=== PATIENT | female | born 1955 | race Caucasian/White ===

== ENCOUNTER 2018-04-22 14:57 | Emergency (ER) | payer OTHER ==
--- NOTE | 2018-04-22 15:05 | ER Report ---
History and Physical Time Seen By MD: 15:06 HPI/ROS CHIEF COMPLAINT: Allergic reaction HISTORY OF PRESENT ILLNESS: 62-year-old female patient presents to emergency room with complaint of allergic reaction. Patient states that she is traveling from [facility] back to home in [place]. Patient states that they had had a corn dog coming back from [facility]. She states they stopped at [employer], had lunch and as they're leaving she knows that her palms were itchy. She didn't think too much about that, they got in the car and drove. Approximately 30-[address] she did feel that she is starting to develop an allergic reaction. She developed a lump in her mouth, which is very normal for when she has an allergic reaction. She states that she took some Benadryl as well as some allergy medicine. She states that she did feel better, however about 10 minutes later she did go ahead and give herself the EpiPen. Patient states that currently she does feel better, however she does have itching still to the palms or hand. She states that she is not able to keep from scratching. She denies any shortness of breath, nausea, vomiting. Patient states they've not been able to figure out what is causing her allergic reactions. REVIEW OF SYSTEMS: Respiratory: No cough, no dyspnea. Cardiovascular: No chest pain, no palpitations. Gastrointestinal: No vomiting, no abdominal pain. Musculoskeletal: No back pain. Allergies: Coded Allergies: Sulfa (Sulfonamide Antibiotics) (Verified Allergy, Unknown, 04/22/18) Home Meds Active Scripts Epinephrine (EPIPEN 2-VICK) 0.3 Mg/0.3 Ml Pen.injctr, 0.3 MG IM ONCE PRN for allergic reaction, #2 PACK Prov:SIMIN AVALOSE [facility] 04/22/18 Prednisone (PREDNISONE) 20 Mg Tablet, 20 MG PO BID, #10 TAB Prov:DELMY AVALOS [facility] 04/22/18 Reported Medications Ranitidine Hcl (ZANTAC) 150 Mg Tablet, 300 MG PO BID, TAB 04/22/18 Aspirin (ASPIR 81) 81 Mg Tablet.dr, 81 MG PO QDAY, TAB 04/22/18 Pantoprazole Sodium (PROTONIX) 40 Mg Granpkt.dr, 40 MG PO QDAY, PACK 04/22/18 Metoprolol Succinate (METOPROLOL SUCCINATE) 50 Mg Tab.er.24h, 1 TAB PO QDAY, TAB 04/22/18 Metoprolol Succinate (METOPROLOL SUCCINATE) 25 Mg Tab.er.24h, 1 TAB PO QDAY, TAB 04/22/18 Atenolol (ATENOLOL) 50 Mg Tablet, 1 TAB PO QDAY, TAB 04/22/18 Duloxetine Hcl (CYMBALTA) 60 Mg Capsule.dr, 60 MG PO BID, #10 CAP 04/22/18 Rosuvastatin Calcium (CRESTOR) 10 Mg Tab, 10 MG FT QDAY, TAB 04/22/18 Past Medical/Surgical History Patient has a past medical history of hypertension, hyperlipidemia, reflux. Patient denies any surgical history. Reviewed Nurses Notes: Yes Constitutional Vital Sign - Last 24 Hours 04/22/18 04/22/18 04/22/18 04/22/18 15:02 15:03 15:12 15:27 Temp 98.7 Pulse 84 77 80 Resp 18 B/P (MAP) 173/77 (109) 173/77 Pulse Ox 94 91 94 O2 Delivery Room Air 04/22/18 04/22/18 04/22/18 04/22/18 15:30 15:42 15:57 16:00 Pulse 78 75 B/P (MAP) 148/70 (96) 149/79 (102) Pulse Ox 90 91 04/22/18 04/22/18 04/22/18 04/22/18 16:12 16:27 16:30 16:42 Pulse 75 71 ??? B/P (MAP) 138/69 (92) Pulse Ox 89 87 89 Physical Exam General Appearance: The patient is alert, has no immediate need for airway protection and no current signs of toxicity. Respiratory: Chest is non tender, lungs are clear to auscultation. No stridor is noted. Cardiac: regular rate and rhythm Gastrointestinal: Abdomen is soft and non tender, no masses, bowel sounds normal. Musculoskeletal: Neck: Neck is supple and non tender. Extremities have full range of motion and are non tender. Skin: No rashes or lesions. DIFFERENTIAL DIAGNOSIS: After history and physical exam differential diagnosis was considered for allergic reaction, shortness of breath, contact dermatitis. Medical Decision Making ED Course/Re-evaluation ED Course Patient was admitted to an exam room, history of physical were obtained. Differential diagnoses were considered. On examination lungs are clear, heart is regular, abdomen soft nontender. An IV was started, patient received 125 mg Solu-Medrol, 20 mg of Pepcid. She did feel better after watching her for 45 minutes. Patient states she does feel ready to go home at this point time. We will go ahead and discharge patient home. We will have her on prednisone for the next 5 days. Patient was also given a prescription for EpiPen. She is to return to the emergency room if condition worsens. She is follow-up with her primary care provider in [place] upon returning home. Patient verbalized understanding and agreement with plan. Decision to Disposition Date: Apr 22, 2018 Decision to Disposition Time: 16:39 Depart Departure Latest Vital Signs Vital Signs Date Time Temp Pulse Resp B/P (MAP) Pulse Ox O2 Delivery O2 Flow Rate FiO2 04/22/18 16:42 ??? 89 04/22/18 16:30 138/69 (92) 04/22/18 15:03 98.7 18 Room Air Impression: Primary Impression: Allergic reaction Condition: Improved Disposition: HOME OR SELF-CARE New Scripts Epinephrine (EPIPEN 2-VICK) 0.3 Mg/0.3 Ml Pen.injctr 0.3 MG IM ONCE PRN for allergic reaction, #2 PACK Prov: DELMY AVALOS 04/22/18 Prednisone (PREDNISONE) 20 Mg Tablet 20 MG PO BID, #10 TAB Prov: DELMY AVALOS 04/22/18 Patient Instructions: General Allergic Reaction (ED) Additional Instructions: Increase fluid intake. Take medication as prescribed. Follow up with your primary care provider in 1 week. Return to the ER if condition worsens. Continue with your normal medications. Problem Qualifiers Primary Impression: Allergic reaction Encounter type: initial encounter Qualified Codes: T78.40XA - Allergy, un specified, initial encounter ÁLVARO AVALOSNURIA SIEGEL Apr 22, 2018 15:05
[2018-04-22] MEDS ORDERED: ATEN-1 PO (15:10)
[2018-04-22] MEDS ORDERED: RANI-366 PO (15:10)
[2018-04-22] MEDS ORDERED: PANT40SU3 PO (15:10)
[2018-04-22] MEDS ORDERED: METO50TA19 PO (15:10)
[2018-04-22] MEDS ORDERED: ROS10 FT (15:10)
[2018-04-22] MEDS ORDERED: DULO60CA56 PO (15:10)
[2018-04-22] MEDS ORDERED: METO25TA23 PO (15:10)
[2018-04-22] MEDS ORDERED: ASPI-1471 PO (15:10)
[2018-04-22] MEDS ORDERED: NS(*) 0.9% 1000 ML BAG 1,000 ML IV ONE (15:15)
[2018-04-22] MEDS ORDERED: FAMOTIDINE(*) 20MG/50ML PREMIX 50 ML IVPB ONE (15:15)
[2018-04-22] MEDS ORDERED: methylPREDNIS SUCC 125 MG/2ML IVP ONE (15:15)
[2018-04-22 16:30] VITALS: BP 138/69
[2018-04-22] MEDS ORDERED: EPIN0.3P15 IM (16:37)
[2018-04-22] MEDS ORDERED: PRED20TA6 PO (16:37)
== END 2018-04-22 16:48 | disposition home or self-care (01) ==
LOC: ER 15:04
DX: T78.40XA Allergy, unspecified, initial encounter (principal)
CPT/HCPCS: 96374; 99283; J2930; J3490; J7030